=== PATIENT | female | born 1975 | race Caucasian/White ===

== ENCOUNTER 2022-06-16 00:08 | Day surgery (SDC) | payer BC, SELFPAY ==
[2022-06-03 13:49] VITALS: BMI 25.1
--- NOTE | 2022-06-03 14:15 | SUR.PREOP ---
Report to the Outpatient Waiting Room, entrance under the green pavilion located off [facility], at time 0600 on date 06/16/22. Planned Procedure Time: 0730. Time changes happen often and if your time is changed the preop area will call you the afternoon before. - You and your visitor will be asked to self-screen and do not enter if you have any COVID symptoms. - Only one visitor is requested with a max of two and NO children visitors are allowed at this time. - The patient visitor may be requested to leave or wait in car when not with patient due to distancing restrictions. - A mask is optional within the hospital at this time. Patients may have clear liquids (water, carbonated beverages, clear teas, apple juice) until 3 hours prior to surgery with a maximum of 20 ounces- 0430. - No food from midnight until time of surgery - Infants may have breast milk until 4 hours before surgery, formula 6 hours prior to surgery. - Children will be allowed to drink immediately following surgery. If applicable, please bring a bottle or sippy cup to assist with drinking. Juice, water, soda, and popsicles are readily available. For infants on formula, please bring formula the day of surgery. Pacifiers are allowed. Take the following medications with a SIP of water the morning of surgery: N/A DO NOT STOP ANY OF YOUR OTHER PRESCRIPTION MEDICATIONS PRIOR TO SURGERY ?EXCEPT THE FOLLOWING Medications to discontinue per physician: Vitamins/Supplements- 3 days Date to take last dose: 06/13/2022 Please no make-up, nail bermudian, hairspray, perfume, deodorant, or body powder the day of surgery. No jewelry (including any body piercings) or valuables the day of surgery, leave them at home. Please take a shower or bath the night before, or the morning of, surgery with an antibacterial soap. Wear comfortable, loose fitting clothing. Children are encouraged to wear pajamas. - Jewelry must be removed prior to entering the operating room. Rings and piercings that are not removed may be cut off. - The hospital will not accept responsibility for valuables. - Please leave all valuables, including medications, at home the day of surgery. If you are going home after surgery, a licensed commercial trailer truck driver must drive you home. - NO public transportation without another adult if you receive anesthesia. - We recommend that an adult stay with you for 24 hours following discharge. - We also recommend that you do not drive, make important decision, drink alcoholic beverages, or take any drugs that were not prescribed by your health care provider for at least 24 hours after your discharge time. For Pediatric surgeries, we recommend two adults accompany the child home. Follow any additional instructions given to you from your surgeon. If you or anyone in your household have experienced Covid symptoms in the past week, please notify your surgeon or the nurse liaison at the phone number below for possible testing. Telephone instructions given to patient and asked if any additional questions and then verbalized understanding. Patient advised to call surgeon office or pre surgery nurse liaison [phone] if any additional questions.
[2022-06-16 06:22] VITALS: BP 129/81; PULSE 86; RESP 16; TEMP 36.4; O2SAT 100
[2022-06-16] MEDS: LACTATED RINGERS 1,000 ML 30 ML IV CONT (06:40)
--- NOTE | 2022-06-16 06:47 | WPDANESEPPF ---
Anes - Initial Pre Proc Eval Procedure: Operation Date: 06/16/22 07:30 Proposed Procedures p Hysteroscopy Dilation and Curettage - Puja Barnhart MD Date/Time: 06/16/22 06:47 Surgeon: Puja Barnhart MD Pre Op Diagnosis: abnormal uterine bleeding Patient Data Age: 47 Gender: F Height: 1.78 m Weight: 79.54 kg Allergies Allergy/AdvReac Type Severity Reaction Status Date / Time Penicillins Allergy Unknown Unknown Verified 06/03/22 13:46 Home Medications Medication Instructions Recorded Confirmed Type apple cider vinegar 300 mg tablet See Rx Instructions .Route .COMPLEX 06/03/22 06/03/22 History cholecalciferol (vitamin D3) 50 50 mcg PO BID 06/03/22 06/03/22 History mcg (2,000 unit) capsule magnesium 250 mg PO DAILY 06/03/22 06/03/22 History milk thistle 175 mg capsule 175 mg PO DAILY 06/03/22 06/03/22 History spironolactone 100 mg tablet 100 mg PO BID 06/03/22 06/03/22 History turmeric root extract 500 mg 500 mg PO DAILY 06/03/22 06/03/22 History capsule Patient hx anesthesia problems: none Family hx anesthesia problems: none Results Review: All pre-operative results and documents have been reviewed as part of the pre-operative evaluation. [facility] Past Medical History Medical History (Updated 06/16/22 @ 06:51 by Basilio Fish MD) DUB (dysfunctional uterine bleeding) PCOS (polycystic ovarian syndrome) Surgical History Surgical History (Updated 06/16/22 @ 06:48 by Basilio Fish MD) Hx of tonsillectomy Social History Social History Smoking status: Never smoker Alcohol intake: current Drinks per week: 1 Living arrangements: with family Spiritual care concerns: No Anes - Eval Final PreProcedure Day of Procedure 06/16/22 06:47 Patient weight: normal Heart: regular rate and rhythm Lungs: clear to auscultation Airway: Mallampati scale class II Neurological: alert and oriented Last oral intake: >/= 8 hours ASA classification: II Emergent: no Anesthetic plan: proceed Anesthesia type and monitoring: general GIVS and standard monitoring Results Review: All pre-operative results and documents have been reviewed as part of the pre-operative evaluation. Informed Consent: The patient's anesthetic plan and its attendant risks and benefits were discussed with the patient/family/POA. Questions were solicited and answers provided to the satisfaction of the patient/family/POA.
--- NOTE | 2022-06-16 07:19 | WPDHPUPDATE1 ---
History and Physical Update Update Date/Time: 06/16/22 07:19 History and Physical has been reviewed, including an updated exam of the patient. There are NO changes in the patient's condition. Risks, benefits, and alternatives have been discussed and questions answered. Patient agrees to proceed with procedure.
--- NOTE | 2022-06-16 07:20 | PM.HPGS ---
History of Present Illness History of Present Illness Consent: Risks, benefits, and alternatives have been discussed and questions answered. Patient agrees to proceed with procedure. Chief complaint: abnormal uterine bleeding Narrative: Kamini Bauman is a 47 year old female With irregular cycles approximately every 2 weeks. Was recommended to proceed with D&C hysteroscopy. Risks of infection, bleeding, perforation, fluid imbalance were reviewed. Patient voices understanding and agrees to proceed. Possible pathology is discussed. Review of Systems Review of Systems: not repeated day of surgery; patient states no changes in status PMFSH Past Medical History Medical History (Updated 06/16/22 @ 07:24 by Puja Barnhart MD) Abnormal Pap smear of cervix 1994 patient had cryotherapy (normal spontaneous vaginal delivery) PCOS (polycystic ovarian syndrome) Surgical History Surgical History (Updated 06/16/22 @ 07:23 by Puja Barnhart MD) History of breast biopsy History of hysteroscopy 2015 benign Hx of tonsillectomy Social History Social History Smoking status: Never smoker Alcohol intake: current Drinks per week: 1 Living arrangements: with family Spiritual care concerns: No Meds Home Medications and Allergies Home Medications Medication Instructions Recorded Confirmed Type apple cider vinegar 300 mg tablet See Rx Instructions .Route .COMPLEX 06/03/22 06/16/22 History cholecalciferol (vitamin D3) 50 50 mcg PO BID 06/03/22 06/16/22 History mcg (2,000 unit) capsule magnesium 250 mg PO DAILY 06/03/22 06/16/22 History milk thistle 175 mg capsule 175 mg PO DAILY 06/03/22 06/16/22 History spironolactone 100 mg tablet 100 mg PO BID 06/03/22 06/16/22 History turmeric root extract 500 mg 500 mg PO DAILY 06/03/22 06/16/22 History capsule Allergies Allergy/AdvReac Type Severity Reaction Status Date / Time Penicillins Allergy Unknown Unknown Verified 06/16/22 07:04 Vital Signs Vital Signs - 24 hr 06/16/22 06:22 Temperature 97.5 F L Pulse Rate 86 Respiratory Rate 16 Blood Pressure 129/81 Pulse Oximetry 100 Oxygen Delivery Room Air Exam Const: General: healthy appearing and alert Orientation/consciousness: patient oriented x3 Resp: Effort & Inspection: normal respiratory effort GI: GI Palp: Yes Soft to palpation, No Tenderness to palpation present (GI) and No Palpable mass present : External Female Exam: normal external appearance Speculum Exam - Vagina: normal appearance of the vagina and normal vaginal discharge Speculum Exam - Cervix: normal appearance of the cervix Bimanual exam- vagina & uterus: uterine size normal and consistency normal Bimanual Exam- Adnexa, other: normal adnexae and No adnexal tenderness Neuro: General: patient oriented x3 Assessment and Plan Assessment and plan (1) Irregular menses: Code(s): N92.6 - Irregular menstruation, unspecified Status: Acute Assessment and Plan: due to the patient's frequent cycles plan is to proceed with D&C hysteroscopy
[2022-06-16] MEDS: ACETAMINOPHEN 500 MG TABLET 1000 MG PO (07:27)
[2022-06-16] MEDS: KETOROLAC 30 MG/ML VIAL (*BKC) IV PUSH (07:30)
[2022-06-16] MEDS: LIDOCAINE HCL 1% PF 30 ML VIAL 10 ML INFILTRATE (07:45)
--- NOTE | 2022-06-16 07:55 | W.PM.PROC2 ---
Procedure Note - Detailed Date of Procedure 06/16/22 Pre-op Diagnosis abnormal uterine bleeding cervical stenosis Post-op Diagnosis Same Procedure Performed D&C hysteroscopy Surgeon Puja Barnhart MD Anesthesia MAC and Local Findings cervix is pulled up into the right and scarred to the vagina on the right side cervix is very stenotic the uterus sounds to 7.5cm and appears grossly The uterus is very tilted with the axis of the ostia being vertical Description of Procedure The patient was taken to the operating room and placed under anesthesia in the dorsal lithotomy position. She was prepped and draped in the usual sterile fashion. [place] speculum was placed in the vagina and the cervix is barely visible and noted to be very scarred and pulled up into the right the left portion of the cervix was grasped with a tenaculum and the cervix is pulled into the midline. The cervix is injected in each quadrant with 1% lidocaine. The os Finders are used under not successful. The small dilator was used and the count is angle to the left at 3:00. The cervix is serially dilated to a 5 Hegar and the hysteroscope is placed to verify appropriate location. The hysteroscope was removed and the cervix was continued to be dilated and dilated to an 8 Hegar. The full hysteroscope was then placed and no abnormalities are noted. The hysteroscope was removed and the sharp curette used to curette the endometrium until a good uterine cry is noted in all areas. The uterus sounds to 7.5cm. All instruments are removed and the patient awakened from anesthesia and taken to recovery in stable condition. Sponge, needle, and instrument counts are correct per the OR staff. Estimated Blood Loss 5 Drains No Packing No Pathology Yes ( endometrial curettings) Complications No immediate complications Condition Stable Disposition PACU
[2022-06-16 07:59] VITALS: BP 103/71; PULSE 82; RESP 16; O2SAT 100
[2022-06-16 08:25] VITALS: BP 97/66; PULSE 70; RESP 20
[2022-06-16 08:55] VITALS: BP 101/72; PULSE 67; RESP 20
== END 2022-06-16 09:01 | disposition home or self-care (01) ==
PROVIDERS: PCP Family Medicine; Visit Provider Obstetrics & Gynecology Gynecology
PROC: 0U5B8ZZ Destruction of Endometrium, Via Natural or Artificial Opening Endoscopic (ICD-10-PCS; CPT 58563; principal; 2022-06-16 07:30)
DX: N93.9 Abnormal uterine and vaginal bleeding, unspecified (principal); N88.2 Stricture and stenosis of cervix uteri
CPT/HCPCS: 58558; 88305; 88342; A9270; J1885; J2250; J2704; J3010; J7030; J7120